=== PATIENT | male | born 1950 | race Hispanic/Latino ===

== ENCOUNTER → 2021-04-27 | Outpatient (CLI) | payer OTHER ==
[~2021-04-27] VITALS: Ht 7.6 cm; Wt 119.5 kg
[~2021-04-27] MED LIST: AEC81 PO; AMLO-258 PO; FENO130C14 PO; HYDR-2132 PO; LOSA100T58 PO; METF-446 PO; [UNRECOGNIZED DRUG - OTHER] PO
== END | disposition home or self-care (01) ==
LOC: DTH 13:40
PROVIDERS: ATTEND Surgery
DX: G47.33 Obstructive sleep apnea (adult) (pediatric) (principal); E66.01 Morbid (severe) obesity due to excess calories; I10 Essential (primary) hypertension; E11.9 Type 2 diabetes mellitus without complications; E78.00 Pure hypercholesterolemia, unspecified
CPT/HCPCS: 97802

== ENCOUNTER → 2021-05-18 | Outpatient (CLI) | payer OTHER | END | disposition home or self-care (01) | LOC: DTH 13:19 | PROVIDERS: ATTEND Surgery | DX: G47.33 Obstructive sleep apnea (adult) (pediatric) (principal); E66.01 Morbid (severe) obesity due to excess calories; I10 Essential (primary) hypertension; E11.9 Type 2 diabetes mellitus without complications; E78.00 Pure hypercholesterolemia, unspecified | CPT/HCPCS: 97803 ==

== ENCOUNTER 2021-07-05 07:00 | Day surgery (SDC) | payer OTHER ==
[2021-06-29 12:15] LABS: BASOPHILS % (AUTO) 1.1 % (0.0-5.0); EOSINOPHILS % (AUTO) 6.8 % (0.0-8.0); HEMATOCRIT 35.5 % (42-54); LYMPHOCYTES % (AUTO) 29.5 % (21.0-51.0); MEAN CORPUSCULAR HEMOGLOBIN 30.6 pg (27.0-33.0); MEAN CORPUSCULAR VOLUME 92.9 fL (79-99); MONOCYTES % (AUTO) 9.9 % (3.0-13.0); NEUTROPHILS % (AUTO) 52.4 % (40.0-77.0); PLATELET COUNT (AUTO) 211 K/uL (130-400); RED BLOOD CELL COUNT(AUTO) 3.82 MIL/uL (4.50-6.20); RED CELL DISTRIBUTION WIDTH 14.6 % (11.0-15.5); WHITE BLOOD COUNT (AUTO) 7.4 K/uL (4.8-10.8)
[2021-06-29 12:23] LABS: CREATININE 1.7 mg/dL (0.5-1.5); POTASSIUM 4.9 mmol/L (3.5-5.1)
[2021-07-05] VITALS (7 sets, daily range): BP systolic 104–127; BP diastolic 55–77
[~2021-07-05] VITALS: Ht 160 cm; Wt 117.0 kg
[~2021-07-05 07:00] MED LIST changes: -AMLO-258 PO; +AMLO2.5T4 PO; +ATOR20TA65 PO; +CHLO25TA3 PO; -FENO130C14 PO; +GLIP2.5T2 PO; -HYDR-2132 PO; +LEVO75TA10 PO; -METF-446 PO; +TAMS-1 PO; -[UNRECOGNIZED DRUG - OTHER] PO
[2021-07-05] MEDS ORDERED: PROPOFOL 10 MG/ML 20ML VIAL IV ONE (07:38)
[2021-07-05] MEDS ORDERED: SUCCINYLCHOLINE 200MG/10ML SYR ONE (07:38)
[2021-07-05] MEDS ORDERED: LIDOCAINE PF 100MG/5ML (2%) SYRINGE 5ML ONE (07:38)
[2021-07-05] MEDS ORDERED: 0.9%NACL 1000ML 1,000 ML IV SCH (08:00)
[2021-07-05] MEDS ORDERED: METF-527 PO (08:05)
== END 2021-07-05 09:15 | disposition home or self-care (01) ==
LOC: ENDO 07:00 → DAH 07:00 → ENDO 09:15
PROVIDERS: ATTEND Surgery
DX: K21.9 Gastro-esophageal reflux disease without esophagitis (principal); Z20.822 Contact with and (suspected) exposure to COVID-19; E11.43 Type 2 diabetes mellitus with diabetic autonomic (poly)neuropathy; K31.84 Gastroparesis; G47.33 Obstructive sleep apnea (adult) (pediatric); E66.01 Morbid (severe) obesity due to excess calories; I10 Essential (primary) hypertension; E78.00 Pure hypercholesterolemia, unspecified; Z79.01 Long term (current) use of anticoagulants; Z79.899 Other long term (current) drug therapy
CPT/HCPCS: 36415; 43235; 71045; 80048; 82948; 85025; 87635; 93005; A4215 ×2; A4221; A4222; A4223; A4606; A4620; A4663; A6260; C9803; J0330; J2001; J2704; J7030

== ENCOUNTER 2021-07-26 06:57 | Inpatient (IN) | payer OTHER ==
[2021-07-19 14:01] LABS: BASOPHILS % (AUTO) 0.9 % (0.0-5.0); EOSINOPHILS % (AUTO) 6.6 % (0.0-8.0); HEMATOCRIT 35.3 % (42-54); LYMPHOCYTES % (AUTO) 28.9 % (21.0-51.0); MEAN CORPUSCULAR HEMOGLOBIN 30.6 pg (27.0-33.0); MEAN CORPUSCULAR HGB CONC 33.4 g/dL (32.0-36.0); MEAN CORPUSCULAR VOLUME 91.5 fL (79-99); MONOCYTES % (AUTO) 9.8 % (3.0-13.0); NEUTROPHILS % (AUTO) 53.5 % (40.0-77.0); PLATELET COUNT (AUTO) 190 K/uL (130-400); RED BLOOD CELL COUNT(AUTO) 3.86 MIL/uL (4.50-6.20); RED CELL DISTRIBUTION WIDTH 14.4 % (11.0-15.5); WHITE BLOOD COUNT (AUTO) 6.8 K/uL (4.8-10.8)
[2021-07-19 14:08] LABS: CREATININE 1.5 mg/dL (0.5-1.5); POTASSIUM 4.6 mmol/L (3.5-5.1)
[2021-07-19 14:14] LABS: INR 0.99 (0.85-1.15); PROTHROMBIN TIME 10.8 SEC (9.6-11.6)
[2021-07-23 10:37] VITALS: BP 157/90
[2021-07-26] VITALS (20 sets, daily range): BP systolic 82–182; BP diastolic 35–110
[~2021-07-26] VITALS: Ht 160 cm; Wt 112.6 kg
[~2021-07-26 06:57] MED LIST changes: -AEC81 PO; +AMLO-257 PO; -AMLO2.5T4 PO; +ASCO500C6 PO; +CHOL500051 PO; +CYAN25002 SL; +METF-527 PO; +TURM500C9 PO; +ZINC220T4 PO
[2021-07-26] MEDS ORDERED: BUPIVACAINE/PF 0.5% 30ML VIAL ONE (08:03)
[2021-07-26] MEDS ORDERED: 0.9%NACL 1000ML 1,000 ML IV ONE (08:04)
[2021-07-26] MEDS: CEFAZOLIN SODIUM 1 GM VIAL ONE ×2 (08:42→10:15)
[2021-07-26] MEDS ORDERED: GLYCOPYRROLATE 1 MG/5 ML SYRINGE ONE (09:43)
[2021-07-26] MEDS ORDERED: ONDANSETRON 4MG INJ ONE (09:43)
[2021-07-26] MEDS ORDERED: DEXAMETHASONE SOD PHOSPHATE 10MG/ML 1ML VIAL ONE (09:43)
[2021-07-26] MEDS ORDERED: PROPOFOL 10 MG/ML 20ML VIAL IV ONE (09:43)
[2021-07-26] MEDS ORDERED: FENTANYL CITRATE PF 50 MCG/1 ML 2ML VIAL ONE (09:43)
[2021-07-26] MEDS ORDERED: LIDOCAINE PF 100MG/5ML (2%) SYRINGE 5ML ONE (09:43)
[2021-07-26] MEDS ORDERED: SUCCINYLCHOLINE CHLORIDE 20 MG/ML 10 ML VIAL ONE (09:43)
[2021-07-26] MEDS ORDERED: ROCURONIUM 10MG/1ML SYR 10 MG/ML ML ONE ×2 (09:44→11:20)
[2021-07-26] MEDS ORDERED: NEOSTIGMINE 5MG/5ML SYR IV ONE (09:44)
[2021-07-26] MEDS ORDERED: MIDAZOLAM HCL 1 MG/ML 2ML VIAL ONE (09:44)
[2021-07-26] MEDS ORDERED: MEPERIDINE-PF 25 MG/ML SYG ONE ×2 (09:48→11:58)
[2021-07-26] MEDS ORDERED: PHENYLEPHRINE HCL 10 MG/ML 1ML VIAL IV ONE (10:09)
[2021-07-26] MEDS ORDERED: EPHEDRINE SULFATE 50 MG/ML AMPULE ONE (10:12)
[2021-07-26] MEDS: LACTATED RINGERS 1000ML 1,000 ML IV SCH ×2 (13:00→20:33)
[2021-07-26] MEDS ORDERED: ONDANSETRON 4MG INJ IVP PRN (13:00)
[2021-07-26] MEDS ORDERED: MORPHINE 5 MG/ML VIAL (5MG OR GREATER DOSE) IVP PRN (13:00)
[2021-07-26] MEDS ORDERED: KETOROLAC 30MG VIAL (30MG/ML) IM PRN (13:00)
[2021-07-26] MEDS: INSULIN HUMULIN R 100 UNIT/ML 3ML SQ SCH ×2 (16:30→20:45)
[2021-07-26] MEDS: LOSARTAN 100 MG TABLET PO SCH (17:56)
[2021-07-26] MEDS ORDERED: LOSARTAN 100 MG TABLET ONE (17:56)
[2021-07-26] MEDS: **HM**(Chlorthalidone 25 MG PO SCH (20:36)
[2021-07-26] MEDS: AMLODIPINE 5 MG TAB PO SCH (20:38)
[2021-07-26] MEDS: ENOXAPARIN SODIUM 30 MG/0.3 ML SQ SCH (20:43)
[2021-07-27] MEDS: LACTATED RINGERS 1000ML 1,000 ML IV SCH ×3 (04:51→22:53)
[2021-07-27 04:56] VITALS: BP 122/83
[2021-07-27] MEDS: LEVOTHYROXINE 75 MCG TABLET PO SCH (06:52)
[2021-07-27] MEDS: INSULIN HUMULIN R 100 UNIT/ML 3ML SQ SCH ×4 (07:30→21:00)
[2021-07-27 08:59] VITALS: BP 147/85
[2021-07-27] MEDS: FAMOTIDINE 20MG VIAL IV SCH (09:01)
[2021-07-27] MEDS: ENOXAPARIN SODIUM 30 MG/0.3 ML SQ SCH ×2 (09:02→22:54)
[2021-07-27 12:41] VITALS: BP 155/85
[2021-07-27 16:59] VITALS: BP 147/68
[2021-07-27] MEDS: **HM**(Chlorthalidone 25 MG PO SCH (21:00)
[2021-07-27] MEDS: AMLODIPINE 5 MG TAB PO SCH (22:53)
[2021-07-27 23:14] VITALS: BP 163/109
[2021-07-28] VITALS (11 sets, daily range): BP systolic 117–172; BP diastolic 71–99
[2021-07-28] MEDS: LACTATED RINGERS 1000ML 1,000 ML IV SCH ×3 (05:00→20:21)
[2021-07-28] MEDS: LEVOTHYROXINE 75 MCG TABLET PO SCH (06:49)
[2021-07-28] MEDS: INSULIN HUMULIN R 100 UNIT/ML 3ML SQ SCH ×4 (07:00→20:36)
[2021-07-28] MEDS: LOSARTAN 100 MG TABLET PO SCH (08:36)
[2021-07-28] MEDS: FAMOTIDINE 20MG VIAL IV SCH (08:36)
[2021-07-28] MEDS: ENOXAPARIN SODIUM 30 MG/0.3 ML SQ SCH ×2 (08:37→20:23)
[2021-07-28 10:53] LABS: HEMATOCRIT 34.5 % (42-54); MEAN CORPUSCULAR HEMOGLOBIN 30.7 pg (27.0-33.0); MEAN CORPUSCULAR HGB CONC 33.3 g/dL (32.0-36.0); RED BLOOD CELL COUNT(AUTO) 3.75 MIL/uL (4.50-6.20); RED CELL DISTRIBUTION WIDTH 14.6 % (11.0-15.5); WHITE BLOOD COUNT (AUTO) 12.2 K/uL (4.8-10.8)
[2021-07-28 11:12] LABS: CREATININE 1.6 mg/dL (0.5-1.5); MAGNESIUM 1.7 mg/dL (1.80-2.40); POTASSIUM 4.1 mmol/L (3.5-5.1)
[2021-07-28] MEDS ORDERED: METOPROLOL TARTRATE 1 MG/ML 5ML VIAL IV ONE (11:59)
[2021-07-28] MEDS: METOPROLOL TARTRATE 1 MG/ML 5ML VIAL IV PRN ×6 (12:13→16:28)
[2021-07-28] MEDS ORDERED: METOPROLOL TARTRATE 50 MG TAB ONE (14:12)
[2021-07-28] MEDS ORDERED: METOPROLOL TARTRATE 50 MG TAB PO ONE (14:30)
[2021-07-28] MEDS: METOPROLOL TARTRATE 50 MG TAB PO SCH ×2 (14:52→20:22)
[2021-07-28] MEDS ORDERED: DIGOXIN 250 MCG/ML 2ML AMP IV SCH (16:45)
[2021-07-28] MEDS: **HM**(Chlorthalidone 25 MG PO SCH (20:34)
[2021-07-28] MEDS: PHARMACY COMMUNICATION MISC SCH (20:34)
[2021-07-28] MEDS ORDERED: TAMSULOSIN HCL 0.4 MG CAP.ER.24H PO SCH (21:00)
[2021-07-28] MEDS ORDERED: ENOXAPARIN SODIUM 120 MG/0.8ML SQ SCH ×2 (21:00)
[2021-07-29 01:04] VITALS: BP 146/81
[2021-07-29] MEDS: PHARMACY COMMUNICATION MISC SCH ×2 (02:14→08:19)
[2021-07-29 04:39] VITALS: BP 141/76
[2021-07-29] MEDS: LACTATED RINGERS 1000ML 1,000 ML IV SCH (04:50)
[2021-07-29] MEDS: INSULIN HUMULIN R 100 UNIT/ML 3ML SQ SCH ×3 (05:40→16:30)
[2021-07-29] MEDS: LEVOTHYROXINE 75 MCG TABLET PO SCH (06:08)
[2021-07-29 07:00] VITALS: BP 146/80
[2021-07-29] MEDS: FAMOTIDINE 20MG VIAL IV SCH (08:09)
[2021-07-29] MEDS: METOPROLOL TARTRATE 50 MG TAB PO SCH (08:09)
[2021-07-29] MEDS: ENOXAPARIN SODIUM 30 MG/0.3 ML SQ SCH (08:09)
[2021-07-29] MEDS ORDERED: LOSARTAN 100 MG TABLET PO SCH (09:00)
[2021-07-29 11:00] VITALS: BP 141/74
[2021-07-29 16:00] VITALS: BP 142/76
[2021-09-01] MEDS ORDERED: APIX5TAB PO (08:57)
== END 2021-07-29 18:20 | disposition home or self-care (01) | DRG 621 ==
LOC: DAHIP 06:57 → 4DH 13:14
PROVIDERS: ADMIT Surgery; ATTEND Surgery
PROC: 0D164ZA Bypass Stomach to Jejunum, Percutaneous Endoscopic Approach (ICD-10-PCS; principal; 2021-07-26 09:43)
PROC: 0DJ08ZZ Inspection of Upper Intestinal Tract, Via Natural or Artificial Opening Endoscopic (ICD-10-PCS; 2021-07-26 09:43)
DX: E66.01 Morbid (severe) obesity due to excess calories (principal); Z20.822 Contact with and (suspected) exposure to COVID-19; N40.0 Benign prostatic hyperplasia without lower urinary tract symptoms; E78.00 Pure hypercholesterolemia, unspecified; E78.5 Hyperlipidemia, unspecified; E03.9 Hypothyroidism, unspecified; I48.0 Paroxysmal atrial fibrillation; N18.30 Chronic kidney disease, stage 3 unspecified; I12.9 Hypertensive chronic kidney disease with stage 1 through stage 4 chronic kidney disease, or unspecified chronic kidney disease; E11.22 Type 2 diabetes mellitus with diabetic chronic kidney disease; Z68.41 Body mass index [BMI] 40.0-44.9, adult; Z87.891 Personal history of nicotine dependence; Z79.82 Long term (current) use of aspirin; Z83.3 Family history of diabetes mellitus; Z82.49 Family history of ischemic heart disease and other diseases of the circulatory system
CPT/HCPCS: 36415; 43235; 71045; 80048; 82948; 83735; 84443; 84484; 85025; 85027; 85610; 86850; 86900; 86901; 87635; 93005; G0378; J0330; J0690; J1100; J1160; J1650; J1815; J2001; J2175; J2250; J2370; J2405; J2704; J2710; J3010; J3490; J7030; J7120

== ENCOUNTER → 2021-08-31 | Outpatient (CLI) | payer OTHER ==
[~2021-08-31] VITALS: Ht 160 cm; Wt 101.9 kg
[~2021-08-31] MED LIST changes: +0.9% NACL 500ML IV.SOLN 500 ML IV SCH; +APIX5TAB PO; +CEFAZOLIN SODIUM 1 GM VIAL IVP SCH
[2021-08-31 15:15] VITALS: BP 121/81
[2021-08-31 15:20] LABS: BASOPHILS % (AUTO) 0.7 % (0.0-5.0); EOSINOPHILS % (AUTO) 3.3 % (0.0-8.0); HEMATOCRIT 33.8 % (42-54); LYMPHOCYTES % (AUTO) 24.1 % (21.0-51.0); MEAN CORPUSCULAR HEMOGLOBIN 29.3 pg (27.0-33.0); MEAN CORPUSCULAR HGB CONC 32.2 g/dL (32.0-36.0); MEAN CORPUSCULAR VOLUME 90.9 fL (79-99); MONOCYTES % (AUTO) 9.5 % (3.0-13.0); NEUTROPHILS % (AUTO) 62.3 % (40.0-77.0); PLATELET COUNT (AUTO) 235 K/uL (130-400); RED BLOOD CELL COUNT(AUTO) 3.72 MIL/uL (4.50-6.20); RED CELL DISTRIBUTION WIDTH 14.3 % (11.0-15.5); WHITE BLOOD COUNT (AUTO) 6.9 K/uL (4.8-10.8)
[2021-08-31 15:36] LABS: CREATININE 2.6 mg/dL (0.5-1.5); POTASSIUM 4.6 mmol/L (3.5-5.1)
[2021-08-31 15:38] LABS: INR 1.1 (0.85-1.15); PROTHROMBIN TIME 11.9 SEC (9.6-11.6)
[2021-08-31 15:40] LABS: PARTIAL THROMBOPLASTIN TIME 38.2 SEC (26.3-35.5)
== END | disposition home or self-care (01) ==
LOC: DAH 14:35 → EDSTATUS 09-01 15:00
PROVIDERS: ATTEND Surgery
DX: Z01.818 Encounter for other preprocedural examination (principal); K43.2 Incisional hernia without obstruction or gangrene; Z20.822 Contact with and (suspected) exposure to COVID-19; Z79.01 Long term (current) use of anticoagulants
CPT/HCPCS: 36415; 71045; 80048; 85025; 85610; 85730; 87635; 93005; A6260; C9803

== ENCOUNTER → 2022-12-20 | Outpatient (CLI) | payer OTHER ==
[~2022-12-20] MED LIST changes: -0.9% NACL 500ML IV.SOLN 500 ML IV SCH; -CEFAZOLIN SODIUM 1 GM VIAL IVP SCH; -METF-527 PO
== END | disposition home or self-care (01) ==
LOC: RAH 07:21
PROVIDERS: ATTEND Internal Medicine
DX: I12.9 Hypertensive chronic kidney disease with stage 1 through stage 4 chronic kidney disease, or unspecified chronic kidney disease (principal); N18.31 Chronic kidney disease, stage 3a
CPT/HCPCS: 76770; 93975

== ENCOUNTER 2024-08-27 08:47 | Emergency (ER) | payer OTHER ==
[~2024-08-27] VITALS: Ht 162.6 cm; Wt 87.5 kg
[~2024-08-27 08:47] MED LIST changes: +ASCO500C19 PO; -ASCO500C6 PO; -LOSA100T58 PO; +LOSA100T59 PO
[2024-08-27] MEDS: ketOROlac 30MG VIAL (30MG/ML) IM ONE (09:06)
--- NOTE | 2024-08-27 09:07 | ERN ---
General Chief Complaint: Knee Injury/Swelling Stated Complaint: LEFT KNEE PAIN, DENIES INJURY Time Seen by MD: 08:48 Source: patient, family History of Present Illness Initial Comments Patient is a 74-year-old male coming in to be evaluated for knee pain. Patient states he has a bad knee two days ago he exacerbated the knee pain. Patient does wear a knee brace but states it still hurts. Allergies: Coded Allergies: No Known Drug Allergies (Verified Allergy, Unknown, 12/12/14) Home Meds Reported Medications Apixaban (Eliquis) 5 Mg Tablet, 5 MG PO BID, TAB 09/01/21 Cyanocobalamin (Vitamin B-12) (Vitamin B-12) 2,500 Mcg Tab.subl, 2500 MCG SL DAILY, TAB.SL 07/23/21 Turmeric Root Extract (Turmeric) 500 Mg Capsule, 500 MG PO DAILY, CAP 07/23/21 Zinc Sulfate (Zinc) 50 Mg Tablet, 50 MG PO DAILY, TAB 07/23/21 Cholecalciferol (Vitamin D3) (Vitamin D3) 125 Mcg Capsule, 125 MCG PO DAILY, CAP 07/23/21 Ascorbic Acid (Vitamin C) 500 Mg Capsule.er, 500 MG PO DAILY, CAP 07/23/21 Amlodipine Besylate (Amlodipine Besylate) 5 Mg Tablet, 5 MG PO HS, TAB 07/23/21 Chlorthalidone (Chlorthalidone) 25 Mg Tablet, 25 MG PO HS, TAB 07/23/21 Atorvastatin Calcium (Atorvastatin Calcium) 20 Mg Tablet, 20 MG PO DAILY, TAB 07/02/21 Glipizide (Glipizide ER) 2.5 Mg Tab.er.24, 2.5 MG PO DAILY 07/02/21 Levothyroxine Sodium (Levothyroxine Sodium) 75 Mcg Tablet, 75 MCG PO DAILY, TAB 07/02/21 Tamsulosin HCl (Flomax) 0.4 Mg Cap.er.24h, 0.4 MG PO DAILY, CAPSULE.DR 07/02/21 Losartan Potassium (Losartan Potassium) 100 Mg Tablet, 100 MG PO AM, TAB 12/12/14 Past Medical History Past Medical History: Diabetes-Type II, High Cholesterol, Hypertension Medical History Other: CHRONIC LT KNEE PAIN Past Surgical History: Other Surgical History Other: HEEL ROS Dictation CONSTITUTIONAL: No chills, no fever, no weakness, no diaphoresis, no malaise. HEAD/FACE: No signs of trauma. EENT: No eye pain, no blurred vision, no tearing, no double vision, no ear pain, no ear discharge, no nose pain, no nasal congestion, no throat pain, no throat swelling, no mouth pain. RESPIRATORY: No cough, no orthopnea, no SOB, no stridor, no wheezing. CARDIOVASCULAR: No chest pain, no edema, no palpitations, no syncope. GASTROINTESTINAL/ABDOMINAL: No abdominal pain, no constipation, no diarrhea, no nausea, no vomiting. GENITOURINARY: No abnormal discharge, no dysuria, no frequent urination, no hematuria. No complaints of pain in the genitals. MUSCULOSKELETAL: No back pain, no gout, no joint pain, joint swelling, muscle pain, no muscle stiffness, no neck pain. INTEGUMENTARY: No change in color, no change in hair/nails, no dryness, no lesion, no lumps, no rash. NEUROLOGICAL/PSYCH: No anxiety, not depressed, no emotional problem, no headache, no numbness, no pre-existing deficit, no history of seizures, no tremors, no weakness. HEMATOLOGIC/LYMPHATIC: Not anemic, no history of blood clots, no apparent b leeding, no bruising, glands not swollen. All Systems Negative, Except as Noted. Physical Exam Physical Exam Dictation VITAL SIGNS: Reviewed. GENERAL APPEARANCE: Alert, oriented x3, no acute distress, obese. HEAD AND FACE: Non-traumatic. EYES: PERRL, pink conjunctivas, eyelid no trauma, anterior chamber clear. EARS: Pinnas intact and no signs of trauma or erythema. Ear canals clear and no discharge. TMs no erythema. NOSE: No discharge, no bleeding. OROPHARYNX: Mouth normal, teeth no caries, tongue pink. Pharynx clear, no erythema. Tonsils no exudates, no abscesses noted. Mucous membrane moist. NECK: Supple, non-tender, no thyromegaly, no masses, no JVD, no bruits. BREAST: Deferred. CHEST: No tenderness, no crepitus, no paradoxical movement, no retractions. LUNGS: Clear, well-ventilated, symmetric, no rales, no wheezing, no rhonchi, no stridor, good breath sounds bilaterally. HEART: Regular rate, regular rhythm, no murmur, no gallops. VASCULAR: No peripheral edema. ABDOMEN: Soft, positive bowel sounds, nondistended, no guarding, nontender, no rebound, no masses no hepatomegaly, no splenomegaly, no Lemus's sign, no hernias. RECTAL: Deferred. GENITAL: Deferred. NEUROLOGICAL: Normal speech, gross motor function intact, gross sensory function intact. MUSCULOSKELETAL: Neck nontender, full range of motion, back nontender, full ra nge of motion. EXTREMITIES: Nontender, full range of motion. Left knee pain reproducible on palpation SKIN: Color pink, dry, no turgor, no rash, no lacerations, no abrasions, no contusions. LYMPHATICS: Deferred. Results Laboratory and Microbiology Labs Reviewed?: Yes EKG/XRAY/US/CT/MRI EKG Comment Left knee x-ray-NAD pending radiology read MDM MDM: Differential diagnosis: Knee strain, knee fracture, patellar fracture, Patient is a 74-year-old male coming in to be evaluated for left knee pain. Upon evaluation with x-ray no fracture noted chronic changes present. I advised him appropriate follow up with PCP and/or academic specialist for long-term management. Knee immobilizer will be placed. ED Course Orders Procedure Category Date Status Time Knee 3vws Lt RAD 08/27/24 Taken 08:48 Ketorolac PHA 08/27/24 Complete Tromethamine 30mg/Ml 09:00 Knee Immobilizer CARYL 08/27/24 In Process 09:51 Current Medications Medications (Trade) Dose Ordered Sig/Lei Route PRN Reason Start Time Stop Time Status Last Admin Dose Admin Ketorolac Tromethamine (toRADol) 30 mg ONCE ONCE IM 08/27/24 09:00 08/27/24 09:01 DC 08/27/24 09:06 Vital Signs Date Time Temp Pulse Resp B/P (MAP) Pulse Ox O2 Delivery O2 Flow Rate FiO2 08/27/24 09:31 98.6 77 20 136/89 100 Room Air* 0 21 08/27/24 08:48 97.9 65 16 154/95 99 Room Air DX & DISP Disposition: Discharge Departure Impression: Primary Impression: Osteoarthritis of left knee Condition: Stable Scripts Diclofenac Sodium (Voltaren Arthritis Pain) 1 % Gel..gram. 20 GM TP BID for 7 Days, #1 TUBE Prov: SARAH ZAMORA MD 08/27/24 Additional Instructions: FOLLOW-UP WITH PRIMARY CARE PROVIDER IN 1 TO 2 DAYS. TAKE MEDICATIONS DIRECTED HERE IN THE EMERGENCY ROOM. OKAY TO CONTINUE HOME MEDICATIONS UNLESS OTHERWISE DISCUSSED DURING YOUR VISIT IN THE EMERGENCY ROOM TODAY. RETURN TO YOUR NEAREST EMERGENCY ROOM IF SYMPTOMS WORSEN OR IF THERE IS NO IMPROVEMENT. CALL 911 IF YOU NEED IMMEDIATE ASSISTANCE. TAKE TYLENOL [id number] NEEDED AND IF NO CONTRAINDICATIONS ARE PRESENT. INCREASE ORAL HYDRATION. A WOUND CULTURE OR URINE CULTURE WAS ORDERED HERE IN THE EMERGENCY ROOM DEPARTMENT PLEASE FOLLOW-UP WITH PRIMARY CARE PROVIDER AND ADVISE THEM TO GET REPEAT PORTS FROM OUR FACILITY. IF YOU HAD ANY LUIS FELIPE WRAP/SPLINTS THAT WERE APPLIED HERE, PLEASE DO NOT REMOVE THEM UNTIL YOU SEE YOUR PRIMARY CARE OR SPECIALTY. Referrals: Referrals: ELIZABETH THORNE MD (PCP) Time of Disposition: 10:12 SARAH ZAMORA MD Aug 27, 2024 09:07
[2024-08-27 09:31] VITALS: BP 136/89; PULSE 77; RESP 20; TEMP 98.6; O2SAT 100
[2024-08-27] MEDS ORDERED: DICL20GE TP (10:13)
--- NOTE | 2024-08-27 10:30 | HMCIMG ---
KNEE 3VWS LT HISTORY: Knee strain COMPARISON: None TECHNIQUE: 3 images of left knee were obtained. FINDINGS: There is no acute displaced fracture or dislocation. Degenerative changes are seen. IMPRESSION: 1. Findings as described above.
== END 2024-08-27 10:21 | disposition home or self-care (01) ==
LOC: EDH 08:47
DX: M17.12 Unilateral primary osteoarthritis, left knee (principal); E11.9 Type 2 diabetes mellitus without complications; E78.00 Pure hypercholesterolemia, unspecified; I10 Essential (primary) hypertension; Z79.01 Long term (current) use of anticoagulants; Z79.84 Long term (current) use of oral hypoglycemic drugs; Z79.890 Hormone replacement therapy; Z79.899 Other long term (current) drug therapy
CPT/HCPCS: 99283; 29505; 73562; 96372; J1885